=== PATIENT | male | born 1990 | race African-American/Black ===

== ENCOUNTER 2017-07-01 05:27 | Emergency (ER) | payer MEDICAID ==
[~2017-07-01] VITALS: Ht 167.6 cm; Wt 113.4 kg
[2017-07-01 05:50] VITALS: BP_SYST 147
--- NOTE | 2017-07-01 06:00 | NUR ---
Patient to ER bed 6 for evaluation. Side rails up.
--- NOTE | 2017-07-01 06:02 | NUR ---
Patient AAOx4, ambulatory. Patient states having a cough that has been intermittent "for months", but states having a productive cough that worsened yesterday. Patient states mucus is clear colored. Patient also states having pain to lower throat and head due to a headache since yesterday. Patient states pain scale 8/10 with a sharp sensation at this time. Patient also states having a history of smoking. Patient denies SOB and chest pain. Patient denies any other complaints.
--- NOTE | 2017-07-01 06:10 | NUR ---
ER Dr. Donnelly at bedside examining patient.
[2017-07-01 06:31] VITALS: BP_SYST 143
--- NOTE | 2017-07-01 06:31 | NUR ---
Patient given written and verbal discharge instructions and verbalizes understanding. ER MD discussed with patient the results and treatment provided. Patient in stable condition. ID arm band removed. Rx of prednisone, sudafed, zithromax, and robitussin given. Patient educated on pain management and to follow up with PMD. Pain Scale 0/10. Opportunity for questions provided and answered.
== END 2017-07-01 06:31 | disposition home or self-care (01) ==
LOC: SED 05:27
DX: J20.9 Acute bronchitis, unspecified (principal); F17.200 Nicotine dependence, unspecified, uncomplicated; I10 Essential (primary) hypertension
CPT/HCPCS: 99283

== ENCOUNTER 2018-12-16 09:56 | Emergency (ER) | payer OTHER, BC ==
[~2018-12-16] VITALS: Ht 167.6 cm; Wt 116.1 kg
[2018-12-16 10:01] VITALS: BP_SYST 192
--- NOTE | 2018-12-16 10:09 | NUR ---
Patient to ER bed 4 to gown for evaluation. Side rails up. Report given to Cruz HOPPER.
--- NOTE | 2018-12-16 10:15 | NUR ---
PT C/O L LATERAL FOOT PAIN S/P WALKING ON ROCKS. PT H/O HTN.PT NONCOMPLIANT W/MEDS.
--- NOTE | 2018-12-16 11:15 | NUR ---
ER at bedside examining patient.
--- NOTE | 2018-12-16 12:50 | NUR ---
Patient given written and verbal discharge instructions and verbalizes understanding. ER MD Brice discussed with patient the results and treatment provided. Patient in stable condition. ID arm band removed. Rx of Clonidine, [place], Motrin given. Patient educated on pain management and to follow up with PMD. Pain Scale 1. Opportunity for questions provided and answered. Medication side effect fact sheet provided.
[2018-12-16 12:51] VITALS: BP_SYST 179
== END 2018-12-16 12:50 | disposition home or self-care (01) ==
LOC: SED 09:56
DX: S93.601A Unspecified sprain of right foot, initial encounter (principal); X50.9XXA Other and unspecified overexertion or strenuous movements or postures, initial encounter; Y93.31 Activity, mountain climbing, rock climbing and wall climbing; Y92.89 Other specified places as the place of occurrence of the external cause; Y99.8 Other external cause status
CPT/HCPCS: 99283

== ENCOUNTER 2019-01-05 23:42 | Emergency (ER) | payer OTHER, BC ==
[~2019-01-05] VITALS: Ht 167.6 cm; Wt 116.1 kg
[2019-01-05 23:46] VITALS: BP_SYST 137
[2019-01-06 02:25] VITALS: BP_SYST 133
== END 2019-01-06 02:25 ==
LOC: SED 23:42
DX: Z04.1 Encounter for examination and observation following transport accident (principal); I10 Essential (primary) hypertension; V89.2XXA Person injured in unspecified motor-vehicle accident, traffic, initial encounter; Y93.89 Activity, other specified; Y92.410 Unspecified street and highway as the place of occurrence of the external cause; Y99.8 Other external cause status
CPT/HCPCS: 99283